=== PATIENT | female | born 1945 | race Caucasian/White ===

== ENCOUNTER 2024-02-19 21:30 | Emergency (ER) | payer MEDICARE, MEDICAID ==
[~2024-02-19] VITALS: Ht 152.4 cm; Wt 65.9 kg
[2024-02-19 21:39] VITALS: TEMP 97.6
[2024-02-19 22:36] LABS: BASOPHILS % (AUTO) 0.4 % (0.0-2.0); EOSINOPHILS % (AUTO) 1.5 % (1.0-6.0); HEMATOCRIT 42.5 % (36-46); HEMOGLOBIN 14.4 g/dL (12.0-16.0); LYMPHOCYTES # (AUTO) 4.4 K/uL (1.0-4.8); MEAN CORPUSCULAR HEMOGLOBIN 30.8 pg (26.0-34.0); MEAN CORPUSCULAR HGB CONC 33.8 G/dL (31.0-37.0); MEAN CORPUSCULAR VOLUME 91 fL (80-100); MONOCYTES # (AUTO) 0.6 K/uL (0.1-1.0); MONOCYTES % (AUTO) 6.6 % (2.0-9.0); NEUTROPHILS % (AUTO) 43.5 % (40.0-70.0); PLATELET COUNT (AUTO) 118 K/uL (150-450); RED BLOOD CELL COUNT(AUTO) 4.66 MIL/uL (4.00-5.20); RED CELL DISTRIBUTION WIDTH 14.7 % (11.5-14.5); WHITE BLOOD COUNT (AUTO) 9.1 K/uL (4.5-11.0)
[2024-02-19 22:46] LABS: CALCIUM, TOTAL 8.7 mg/dL (8.8-10.5); CREATININE 1.12 mg/dL (0.60-1.30)
[2024-02-19 22:55] LABS: TROPONIN I-HIGH SENSITIVITY 11 ng/L (<51)
[2024-02-19 23:19] VITALS: BP 162/100; PULSE 74; RESP 18; O2SAT 97
[2024-02-20] MEDS: POTASSIUM CHLORIDE 20 MEQ ER TABLET PO ONE (00:24)
== END 2024-02-20 00:25 | disposition home or self-care (01) ==
LOC: EMS 21:30
DX: R51.9 Headache, unspecified (principal); E87.6 Hypokalemia; I10 Essential (primary) hypertension; E11.9 Type 2 diabetes mellitus without complications; E78.5 Hyperlipidemia, unspecified
CPT/HCPCS: 80048; 83880; 84484; 85025; 93005; 99284